=== PATIENT | female | born 1990 | race Hispanic/Latino ===

== ENCOUNTER 2017-03-26 02:38 | Emergency (ER) | payer OTHER ==
[2017-03-26 02:53] VITALS: BP 124/78; PULSE 88; RESP 17; TEMP 98.3; O2SAT 100
--- NOTE | 2017-03-26 03:13 | ED PDOC ---
HPI: CCC, URI, Sore Throat Time Seen by Provider: 03/26/17 03:04 Chief Complaint (Nursing): ENT Problem Chief Complaint (Provider): ear pain History Per: Patient History/Exam Limitations: no limitations Onset/Duration Of Symptoms: Days Current Symptoms Are (Timing): Still Present Location Of Pain: Ear(s) Associated Symptoms: Cough, Sputum, Nasal Congestion Additional History Per: Patient Additional Complaint(s): 26 y/o female presents with bilateral ear pain x 3 days. Patient states she was seen at [facility] last week for fever, sore throat and diagnosed with viral illness. Patient notes "pressure" behind both ears to have started after that, and to have gotten progressively worse after flying to and from [place] yesterday. Symptoms worse in left than right. Associated nasal congestion, and productive cough. Denies fever, chest pain, shortness of breath, palpitations, abdominal pain, changes in bowel movements, sick contacts. Past Medical History Reviewed: Historical Data, Nursing Documentation, Vital Signs Vital Signs: Last Vital Signs Temp 98.3 F 03/26/17 02:48 Pulse 88 03/26/17 02:48 Resp 17 03/26/17 02:48 BP 124/78 03/26/17 02:48 Pulse Ox 100 03/26/17 03:15 - Medical History PMH: No Chronic Diseases Denies: Chronic Kidney Disease - Surgical History Surgical History: Back Surgery - Family History Family History: States: No Known Family Hx - Living Arrangements Living Arrangements: Alone - Home Medications Home Medications: Ambulatory Orders Medication Instructions Recorded Azithromycin [Zithromax] 250 mg PO DAILY #1 packet 03/26/17 Fluticasone Nasal [Flonase] 1 actuation NS BID #1 bottle 03/26/17 Pseudoephedrine HCl [Sudafed 120 mg PO Q12 #10 tablet.er 03/26/17 12-Hour] - Allergies Allergies/Adverse Reactions: Allergies Allergy/AdvReac Type Severity Reaction Status Date / Time No Known Allergies Allergy Verified 07/30/15 15:42 Review of Systems ROS Statement: Except As Marked, All Systems Reviewed And Found Negative ENT: Positive for: Ear Pain, Nose Discharge, Nose Congestion Respiratory: Positive for: Cough Physical Exam - Reviewed Nursing Documentation Reviewed: Yes Vital Signs Reviewed: Yes - Physical Exam Appears: Positive for: Well, Non-toxic, No Acute Distress Head Exam: Positive for: ATRAUMATIC, NORMAL INSPECTION, NORMOCEPHALIC Skin: Positive for: Normal Color Eye Exam: Positive for: Normal appearance ENT: Positive for: TM Is/Are (TM's nonerythematous, with fluid bubbles noted bilaterally. EACs clear bilatearlly). Negative for: Nasal Congestion, Pharyngeal Erythema, Tonsillar Exudate, Tonsillar Swelling Cardiovascular/Chest: Positive for: Regular Rate, Rhythm Respiratory: Positive for: Normal Breath Sounds Gastrointestinal/Abdominal: Positive for: Normal Exam Back: Positive for: Normal Inspection Extremity: Positive for: Normal ROM Neurologic/Psych: Positive for: Alert, Oriented - ECG O2 Sat by Pulse Oximetry: 100 - Radiology X-Ray: Viewed By Co X-Ray Interpretation: No Acute Disease - Progress ED Course And Treament: chest xray patient educated on findings, discharged with rx flonase, sudafed. rx zpak prvoided with instructions to wait 2 days to see if symptoms improve before taking. advised follow up pmd 2-3 days. return to ed for worsening/concerning symptoms. Disposition - Clinical Impression Clinical Impression: URI (upper respiratory infection) - Patient ED Disposition Is Patient to be Admitted: No Counseled Patient/Family Regarding: Studies Performed, Diagnosis, Need For Followup, Rx Given - Disposition Disposition: Routine/Home Disposition Time: 03:56 Condition: STABLE Prescriptions: Azithromycin [Zithromax] 250 mg PO DAILY #1 packet Fluticasone Nasal [Flonase] 1 actuation NS BID #1 bottle Pseudoephedrine HCl [Sudafed 12-Hour] 120 mg PO Q12 #10 tablet.er Instructions: Upper Respiratory Infection (ED)
--- NOTE | 2017-03-26 10:26 | RAD ---
HISTORY: cough, congestion COMPARISON: No prior. TECHNIQUE: Chest PA and lateral FINDINGS: LUNGS: No active pulmonary disease. PLEURA: No significant pleural effusion identified. No pneumothorax apparent. CARDIOVASCULAR: Normal. OSSEOUS STRUCTURES: No acute fracture. Thoracic spinal fixation with pedicle screws at multiple levels affixed to vertical rods. Mild thoracic dextroscoliosis. VISUALIZED UPPER ABDOMEN: Normal. OTHER FINDINGS: None. IMPRESSION: No active disease.
== END 2017-03-26 03:58 | disposition home or self-care (01) ==
LOC: H.ER 02:38
DX: J06.9 Acute upper respiratory infection, unspecified (principal)